=== PATIENT | female | born 1970 | race Caucasian/White ===

== ENCOUNTER 2022-09-16 11:00 | Inpatient (IN) | payer OTHER ==
[2022-09-16 11:38] LABS: Hematocrit 41.5 % (36.0-45.0); Lymphocytes % 26.2 % (15.3-44.8); MPV 9.2 fL (7.6-11.3); RBC Red Blood Cell Count 4.62 M/uL (3.86-4.86)
--- NOTE | 2022-09-16 11:42 | RAD REPORT ---
EXAM DESCRIPTION: RAD - Chest Single View - 09/16/2022 11:38 am CLINICAL HISTORY: syncope vs seizure COMPARISON: No comparisons FINDINGS: Lines: None. Lungs: No evidence of edema or pneumonia. Pleural: No significant pleural effusions or pneumothorax. Cardiac: The heart size is within normal limits. Mediastinum: Within normal limits. Bones: No acute fractures. Other: None IMPRESSION: No acute cardiopulmonary disease.
[2022-09-16 11:46] LABS: Protime INR 0.94
--- NOTE | 2022-09-16 11:58 | RAD REPORT ---
EXAM DESCRIPTION: CT - CTHCSPWOC - 09/16/2022 11:48 am CLINICAL HISTORY: Trauma, head and neck injury. syncope vs seizure, collapse COMPARISON: Neck Angio dated 09/16/2022 TECHNIQUE: Axial 5 mm thick images of the head were obtained. Axial 2 mm thick images of the cervical spine were obtained with sagittal and coronal reconstruction images generated and reviewed. All CT scans are performed using dose optimization technique as appropriate and may include automated exposure control or mA/KV adjustment according to patient size. FINDINGS: CT HEAD WITHOUT CONTRAST: No acute hemorrhage, hydrocephalus or extra-axial collection is identified.No areas of brain edema or midline shift. The paranasal sinuses and mastoids are clear.The calvarium is intact. CT CERVICAL SPINE WITHOUT CONTRAST: No fracture or subluxation.No prevertebral soft tissues swelling is identified. Diffusely enlarged th yroid. Mild multilevel cervical spondylosis. Of note, there is neural foraminal narrowing at multiple levels bilaterally but most notably at C6-7 where the changes are moderate IMPRESSION: No acute intracranial or cervical spine findings.
--- NOTE | 2022-09-16 12:00 | RAD REPORT ---
EXAM DESCRIPTION: CT - Neck Angio - 09/16/2022 11:48 am CLINICAL HISTORY: syncope vs seizure COMPARISON: No comparisons TECHNIQUE: CT angiography of the neck vessels was performed with maximum intensity reformatted image s. 3D maximum intensity pixel (MIP) reconstructions were created CAROTID STENOSIS REFERENCE USING NASCET CRITERIA: Mild - <50% stenosis. Moderate - 50-69% stenosis. Severe - 70-94% stenosis. Near occlusion - 95-99% stenosis. Occluded - 100% stenosis. All CT scans are performed using dose optimization technique as appropriate and may include automated exposure control or mA/KV adjustment according to patient size. FINDINGS: A left aortic arch is identified with normal three vessel configuration of the great vesse ls. No significant flow abnormality is seen of the common carotid bilaterally. Moderate stenosis at the right proximal ICA secondary to calcified plaque. Normal flow is seen within both vertebral arteries. IMPRESSION: Moderate right proximal ICA stenosis. No other stenosis identified within the neck.
[2022-09-16 12:01] LABS: Albumin 3.8 g/dL (3.4-5.0); Bilirubin Direct 0.1 mg/dL (0-0.2); Bilirubin Indirect, Calculated 0.5 mg/dL (0.2-0.8); Bilirubin Total 0.6 mg/dL (0.2-1.0); Magnesium 1.7 mg/dL (1.6-2.4); Potassium 3.9 mEq/L (3.5-5.1); Troponin High Sensitivity 33.1 pg/mL (<58.9)
--- NOTE | 2022-09-16 12:03 | RAD REPORT ---
EXAM DESCRIPTION: CT - Head angio - 09/16/2022 11:48 am CLINICAL HISTORY: syncope vs seizure COMPARISON: No comparisons TECHNIQUE: CT angiography of the head was performed with maximum intensity reformatted images. 3D ma ximum intensity pixel (MIP) reconstructions were created CAROTID STENOSIS REFERENCE USING NASCET CRITERIA: Mild - <50% stenosis. Moderate - 50-69% stenosis. Severe - 70-94% stenosis. Near occlusion - 95-99% stenosis. Occluded - 100% stenosis. All CT scans are performed using dose optimization technique as appropriate and may include automated exposure control or mA/KV adjustment according to patient size. FINDINGS: Anterior circulation: No aneurysm or large vessel occlusion. No hemodynamically significant stenosis. No arteriovenous malf ormation identified. Intracranial calcified plaque. 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 No aneurysm or large vessel occlusion. No hemodynamically significant stenosis. No arteriovenous malformation identified. IMPRESSION: No significant flow abnormality is detected.
[2022-09-16] MEDS ORDERED: NA CHLORIDE 0.9% 1,000 ML ONE ×2 (12:24→17:08)
[2022-09-16] MEDS ORDERED: HYDROCODONE/APAP 5/325 MG TAB ONE (12:38)
--- NOTE | 2022-09-16 13:03 | EDPHYS ---
Physician Documentation [facility] Name: Erika Maddox Age: 52 yrs Sex: Female : 1970 Arrival Date: 09/16/2022 Time: 11:00 Bed 14 Private MD: ED Physician Hakna Mack HPI: 09/16 11:53 This 52 yrs old Female presents to ER via Ambulatory with complaints of Syncope. rn 11:53 The patient has experienced syncope, collapsed, lost consciousness. Onset: The rn symptoms/episode began/occurred just prior to arrival. Duration: This was a single episode. Associated injury: The patient did not suffer any apparent associated injury. Associated signs and symptoms: Pertinent positives: headache, Pertinent negatives: abdominal pain, chest pain, shortness of breath, vomiting. Current symptoms: confusion. The patient has not experienced similar symptoms in the past. Per EMS report, patient with syncopal vs seizure episode, unknown duration, possibly 10 min, generalized shaking, no hx of seizures. No overdose. Reports headache, no focal neuro complaints. Feels confused and can't remember what happened. . Historical: - Allergies: 11:06 No Known Allergies; ss - PMHx: 11:06 Diabetes mellitus; ss 11:38 Hypertensive disorder; Hypothyroidism; CAD; ss 11:39 Myocardial infarction; ss - PSHx: 11:06 Cardiac Stents; ss 11:38 hysterectomy; L carotid; ss - Social history:: Smoking status: Patient denies any tobacco usage or history of. - Family history:: not pertinent. - Hospitalizations: : No recent hospitalization is reported. ROS: 11:53 Constitutional: Negative for fever, chills, and weight loss, Neck: Negative for injury, rn pain, and swelling, Cardiovascular: Negative for chest pain, palpitations, and edema, Respiratory: Negative for shortness of breath, cough, wheezing, and pleuritic chest pain, Abdomen/GI: Negative for abdominal pain, nausea, vomiting, diarrhea, and constipation, Back: Negative for injury and pain, MS/Extremity: Negative for injury and deformity, Skin: Negative for injury, rash, and discoloration, Neuro: + headache and seizure Exam: 11:53 Constitutional: This is a well developed, well nourished patient who is awake, alert, rn and in no acute distress. Seems confused Head/Face: Normocephalic, atraumatic. Eyes: Pupils equal round and reactive to light, extra-ocular motions intact. Cardiovascular: Regular rate and rhythm. No pulse deficits. Respiratory: No increased work of breathing, no retractions or nasal flaring. Abdomen/GI: Soft, non-tender Skin: Warm, dry MS/ Extremity: Pulses equal, no cyanosis. Neuro: Awake and alert, GCS 15, oriented to person, not place or time. Cranial nerves II-XII grossly intact. Motor strength 5/5 in all extremities. Sensory grossly intact. Cerebellar exam normal. Normal gait. Vital Signs: 11:02 BP 160 / 100; Pulse 101; Resp 18; Temp 97.5(TE); Pulse Ox 95% on R/A; Height 5 ft. 3 ss in. ; Pain 0/10; 11:36 BP 171 / 100; Pulse 95; Pulse Ox 100% on R/A; ss 12:23 BP 133 / 83; Pulse 90; Resp 15; Pulse Ox 100% on R/A; Pain 8/10; ss 13:55 BP 134 / 86; Pulse 83; Resp 14; Pulse Ox 100% on R/A; Pain 7/10; ss 11:02 Pain Scale: Adult ss 12:23 Pain Scale: Adult ss 13:55 Pain Scale: Adult ss MDM: 11:02 Patient medically screened. rn 13:01 Differential Diagnosis: cardiac arrhythmia, cerebrovascular accident, emotional rn response, idiopathic syncope, seizure, transient ischemic attack, vasovagal episode. Data reviewed: vital signs, nurses notes, lab test result(s), EKG, radiologic studies, CT scan, and as a result, I will admit patient. Consideration of Admission/Observation Patient was admitted/placed on observation. Escalation of care including admission/observation considered. Management of patient was discussed with the following: Hospitalist: . I considered the following discharge prescriptions or medication management in the emergency department Medications were administered in the Emergency Department. See MAR. Counseling: I had a detailed discussion with the patient and/or guardian regarding: the historical points, exam findings, and any diagnostic results supporting the discharge/admit diagnosis, lab results, radiology results, the need for further work-up and treatment in the hospital. Response to treatment: the patient's symptoms have resolved after treatment, the patient's condition has returned to base line, and as a result, I will admit patient. ED course: Pt now back to baseline, neg ct head/angios, will admit for new onset seizure and cardiac rule out. . 09/16 11:09 Order name: Basic Metabolic Panel; Complete Time: 12:08 rn 09/16 11:09 Order name: CBC with Diff; Complete Time: 12:08 rn 09/16 11:09 Order name: Hepatic Function; Complete Time: 12:08 rn 09/16 11:09 Order name: Magnesium; Complete Time: 12:08 rn 09/16 11:09 Order name: Protime (+inr); Complete Time: 12:08 rn 09/16 11:09 Order name: Ptt, Activated; Complete Time: 12:08 rn 09/16 11:09 Order name: Troponin High Sensitivity; Complete Time: 12:08 rn 09/16 11:09 Order name: Urinalysis w/ reflexes rn 09/16 13:54 Order name: CBC with Automated Diff EDMS 09/16 13:54 Order name: CBC with Automated Diff EDMS 09/16 13:54 Order name: Comprehensive Metabolic Panel EDMS 09/16 13:54 Order name: Comprehensive Metabolic Panel EDMS 09/16 13:54 Order name: Troponin High Sensitivity EDMS 09/16 13:54 Order name: Troponin High Sensitivity EDMS 09/16 13:54 Order name: Troponin High Sensitivity EDMS 09/16 11:09 Order name: CT Head C Spine; Complete Time: 12:08 rn 09/16 11:09 Order name: Chest Single View XRAY; Complete Time: 12:08 rn 09/16 11:09 Order name: Neck Angio CT; Complete Time: 12:08 rn 09/16 11:09 Order name: Head Angio CT; Complete Time: 12:08 rn 09/16 11:09 Order name: EKG; Complete Time: 11:09 rn 09/16 13:54 Order name: Heart Healthy EDMS 09/16 11:09 Order name: Cardiac monitoring; Complete Time: 11:36 rn 09/16 11:09 Order name: EKG - Nurse/Tech; Complete Time: 11:36 rn 09/16 11:09 Order name: IV Saline Lock; Complete Time: 11:36 rn 09/16 11:09 Order name: Labs collected and sent; Complete Time: 11:36 rn 09/16 11:09 Order name: NPO; Complete Time: 11:36 rn 09/16 11:09 Order name: O2 Per Protocol; Complete Time: 11:36 rn 09/16 11:09 Order name: O2 Sat Monitoring; Complete Time: :36 rn 09/16 11:09 Order name: Glucose Level; Complete Time: :36 rn Administered Medications: 12:21 Drug: NS 0.9% IV 1000 ml Route: IV; Rate: 1000 ml; Site: right antecubital; ss 13:30 Follow up: IV Status: Completed infusion; IV Intake: 1000ml ss 12:34 Drug: HYDROcodone-acetaminophen PO 5 mg-325 mg 1 tabs Route: PO; ss 13:55 Follow up: Response: No adverse reaction; Pain is unchanged, physician notified ss 13:30 Drug: Keppra IV 1000 mg Route: IV; Rate: calculated rate; Site: right antecubital; ss 13:45 Follow up: IV Status: Completed infusion ss 13:55 Drug: morphine IVP or IV 4 mg Route: IVP; Infused Over: 4 mins; Site: right antecubital;ss 15:20 Follow up: Response: No adverse reaction ss 14:57 Drug: Famotidine IVP 20 mg Route: IVP; Site: right antecubital; iw 15:20 Follow up: Response: No adverse reaction ss Disposition Summary: 09/16/22 13:03 Hospitalization Ordered Hospitalization Status: Observation rn Provider: Keyla Gan rn Condition: Stable rn Problem: new rn Symptoms: have improved rn Bed/Room Type: Standard rn Location: Telemetry/MedSurg (observation)(09/16/22 16:21) aa5 Room Assignment: 414(09/16/22 16:21) aa Diagnosis - Other seizures - new onset rn Forms: - Medication Reconciliation Form rn - SBAR form rn Signatures: Dispatcher [employer] Donna Forbes RN RN Hakan Mack MD MD rn Calderon, Audri, RN RN aa Heike Mello RN RN ss Corrections: (The following items were deleted from the chart) 11:58 11:53 Constitutional: Negative for fever, chills, and weight loss, Neck: Negative for rn injury, pain, and swelling, Cardiovascular: Negative for chest pain, palpitations, and edema, Respiratory: Negative for shortness of breath, cough, wheezing, and pleuritic chest pain, Abdomen/GI: Negative for abdominal pain, nausea, vomiting, diarrhea, and constipation, Back: Negative for injury and pain, MS/Extremity: Negative for injury and deformity, Skin: Negative for injury, rash, and discoloration, Neuro: Negative for weakness, numbness, tingling, and seizure, rn 15: 13:03 Telemetry/MedSurg (observation) rn 15: 13:03 rn 16: 15:17 [facility] ER [facility] aa5 16: 15:17 [facility] aa[facility]
--- NOTE | 2022-09-16 13:03 | ER ---
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 EMS reports initial VS were ss 230/130 HR 112, BGL 401. Coronavirus screen: Client denies travel out of the [place] in the last 14 days. Ebola Screen: Patient denies exposure to infectious person. Patient denies travel to an Ebola-affected area in the 21 days before illness onset. Initial Sepsis Screen: Does the patient meet any 2 criteria? No. Patient's initial sepsis screen is negative. Does the patient have a suspected source of infection? No. Patient's initial sepsis screen is negative. Risk Assessment: Do you want to hurt yourself or someone else? Patient reports no desire to harm self or others. Onset of symptoms was September 16, 2022. 11:02 Method Of Arrival: Ambulatory ss 11:02 Acuity: JIN 2 ss Historical: - Allergies: 11:06 No Known Allergies; ss - PMHx: 11:06 Diabetes mellitus; ss 11:38 Hypertensive disorder; Hypothyroidism; CAD; ss 11:39 Myocardial infarction; ss - PSHx: 11:06 Cardiac Stents; ss 11:38 hysterectomy; L carotid; ss - Social history:: Smoking status: Patient denies any tobacco usage or history of. - Family history:: not pertinent. - Hospitalizations: : No recent hospitalization is reported. Screenin:37 [facility] ED Fall Risk Assessment (Adult) History of falling in the last 3 months, ss including since admission Yes- physiologic fall (2 pts). Abuse screen: Denies threats or abuse. Denies injuries from another. Nutritional screening: No deficits noted. Tuberculosis screening: Never had TB. Assessment: 11:37 Reassessment: Pt to CT now VIA stretcher. ss 13:55 Reassessment: at bedside. Pt states that headache is unchanged. 10/16. Dr. Mack ss notified and Morphine administered as ordered. Neuro: Level of Consciousness is awake, alert. Respiratory: Airway is patent Respiratory effort is even, unlabored. Vital Signs: 11:02 BP 160 / 100; Pulse 101; Resp 18; Temp 97.5(TE); Pulse Ox 95% on R/A; Height 5 ft. 3 ss in. ; Pain 0/10; 11:36 BP 171 / 100; Pulse 95; Pulse Ox 100% on R/A; ss 12:23 BP 133 / 83; Pulse 90; Resp 15; Pulse Ox 100% on R/A; Pain 8/10; ss 13:55 BP 134 / 86; Pulse 83; Resp 14; Pulse Ox 100% on R/A; Pain 7/10; ss 11:02 Pain Scale: Adult ss 12:23 Pain Scale: Adult ss 13:55 Pain Scale: Adult ss ED Course: 11:02 Patient arrived in ED. ss 11:02 Hakan Mack MD is Attending Physician. rn 11:06 Triage completed. ss 11:06 Arm band placed on right wrist. ss 11:25 Maintain EMS IV. Dressing intact. Good blood return noted. Site clean \T\ dry. Gauge \T\ ss site: 22 gauge in L wrist. 11:36 Heike Fisher RN is Primary Nurse. ss 11:37 Patient has correct armband on for positive identification. ss 11:37 Inserted saline lock: 20 gauge in right antecubital area, using aseptic technique. ss Blood collected. 11:39 Chest Single View XRAY In Process Unspecified. EDMS 11:50 CT Head C Spine In Process Unspecified. EDMS 11:[address] In Process Unspecified. EDMS 11:[address] In Process Unspecified. EDMS 13:02 Keyla Gan MD is Hospitalizing Provider. rn 15:18 No provider procedures requiring assistance completed. Patient admitted, IV remains in ss place. Administered Medications: 12:21 Drug: NS 0.9% IV 1000 ml Route: IV; Rate: 1000 ml; Site: right antecubital; ss 13:30 Follow up: IV Status: Completed infusion; IV Intake: 1000ml ss 12:34 Drug: HYDROcodone-acetaminophen PO 5 mg-325 mg 1 tabs Route: PO; ss 13:55 Follow up: Response: No adverse reaction; Pain is unchanged, physician notified ss 13:30 Drug: Keppra IV 1000 mg Route: IV; Rate: calculated rate; Site: right antecubital; ss 13:45 Follow up: IV Status: Completed infusion ss 13:55 Drug: morphine IVP or IV 4 mg Route: IVP; Infused Over: 4 mins; Site: right antecubital;ss 15:20 Follow up: Response: No adverse reaction ss 14:57 Drug: Famotidine IVP 20 mg Route: IVP; Site: right antecubital; iw 15:20 Follow up: Response: No adverse reaction ss Medication: 11:38 VIS not applicable for this client. ss Intake: 13:30 IV: 1000ml; Total: 1000ml. ss Outcome: 13:03 Decision to Hospitalize by Provider. rn 15:18 Admitted to ER Hold. Please see [facility] for further documentation. ss 15:18 Condition: good 15:18 Instructed on the need for admit. 20:19 Admitted to Med/surg room 414, Report called to antwon schaeffer 20:36 Patient left the ED. Signatures: Dispatcher [employer] EDMichelle Catalan RN RN kl Williams, Irene, RN RN iw Nieto, Roman, MD MD rn Blanchard, Shelby, RN RN
[2022-09-16] MEDS ORDERED: levETIRAcetam 1,000 MG in NA CHLORIDE 0.9% 100 ML IV ONE (13:15)
[2022-09-16 13:44] LABS: Specific Gravity > 1.030 (1.005-1.030); Urine Bacteria <20 /HPF (<20); Urine Bilirubin NEGATIVE (Negative); Urine Blood Negative (Negative); Urine Clarity Clear (Clear); Urine Color Colorless (Yellow); Urine Glucose 4+ (Over) (Negative); Urine Mucus Slight /HPF (None Seen); Urine Protein 1+ (Negative); Urine RBC <5 /HPF (None Seen); Urine Urobilinogen Normal (Normal)
[2022-09-16] MEDS ORDERED: ONDANSETRON 4 MG/2 ML VIAL IV PRN (13:48)
[2022-09-16] MEDS ORDERED: MORPHINE 4 MG/ML SYR ONE (13:55)
[2022-09-16] MEDS: NA CHLORIDE 0.9% 1,000 ML IV SCH (14:00)
[2022-09-16] MEDS ORDERED: clonazePAM 0.5 MG TAB PO SCH (14:00)
[2022-09-16] MEDS ORDERED: FAMOTIDINE 20 MG/2 ML VIAL IV ONE (14:56)
[2022-09-16] MEDS ORDERED: MORPHINE 2 MG/ML SYR ONE (17:40)
--- NOTE | 2022-09-16 17:48 | P.HP ---
Certification for Inpatient Patient admitted to: Observation With expected LOS: <2 Midnights Patient will require the following post-hospital care: None Practitioner: I am a practitioner with admitting privileges, knowledge of patient current condition, hospital course, and medical plan of care. Services: Services provided to patient in accordance with Admission requirements found in Title 42 Section 412.3 of the Code of Federal Regulations Patient History Date of Service: 09/16/22 Reason for admission: Cardiac syncope versus seizure History of Present Illness: Patient is a 52-year-old female who was not feeling well today. She states she was having a hard time concentrating all day. 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 While he was talking to her she seemed to tense and throw her arms up in the air and she fell backwards. She appeared to have what looked like a seizure and she bit her tongue. She was brought to the emergency room and she was altered for the first couple hours in the emergency room. She has started coming around and she answers all my questions fairly appropriately. She still having a hard time thinking. She was loaded with Keppra. We really do not have the means to do an EEG in the hospital but her CT imaging studies are negative. I will go ahead and put her on antiepileptics as well as anxiolytics. We will put her on antiplatelet and statin therapy. She does not have any neurologic deficits at this time. She will be admitted to the hospital for further evaluation. Allergies No Known Allergies Allergy (Unverified 09/16/22 13:07) - Past Medical/Surgical History -: Coronary artery disease status post stent placement -: Cardiac catheterization status post stents - Family History Father Family History: Reviewed- Non-Contributory - Social History Smoking Status: Current some day smoker Alcohol use: No CD- Drugs: No Review of Systems 10-point ROS is otherwise unremarkable Physical Examination - Vital Signs Temperature: 98 F Blood Pressure: 130/80 Pulse: 80 Respirations: 16 Pulse Ox (%): 95 - Physical Exam General: Alert, In no apparent distress, Oriented x3 HEENT: Atraumatic, PERRLA, Mucous membr. moist/pink, EOMI, Sclerae nonicteric Neck: Supple, 2+ carotid pulse no bruit, No LAD, Without JVD or thyroid abnormality Respiratory: Clear to auscultation bilaterally, Normal air movement Cardiovascular: Regular rate/rhythm, Normal S1 S2, No murmurs Gastrointestinal: Normal bowel sounds, Soft and benign, Non-distended, No te nderness Musculoskeletal: No clubbing, No swelling, No tenderness Integumentary: No rashes Neurological: Normal gait, Normal speech, Normal strength at 5/5 x4 extr, Normal tone, Sensation intact, Cranial nerves 3-12 intact, Normal affect Lymphatics: No axilla or inguinal lymphadenopathy - Studies Laboratory Data (last 24 hrs) 09/16/22 11:31: PT 10.3, INR 0.94, APTT 33.1 09/16/22 11:31: WBC 7.80, Hgb 14.1, Hct 41.5, Plt Count 273 09/16/22 11:31: Sodium 134 L, Potassium 3.9, BUN 16, Creatinine 1.03 H, Glucose 358 H, Magnesium 1.7, Total Bilirubin 0.6, AST 18, ALT 36, Alkaline Phosphatase 91 Assessment & Plan - Problems (Diagnosis) (1) Syncope and collapse Current Visit: Yes Status: Acute (2) Seizure disorder Current Visit: Yes Status: Acute (3) History of coronary artery disease Current Visit: Yes Status: Acute (4) Status post coronary artery stent placement Current Visit: Yes Status: Acute (5) Tobacco abuse Current Visit: Yes Status: Acute - Plan Plan: 1. Continue with antiepileptic therapy 2. Antiplatelet and statin therapy 3. Repeat CT of the head in the morning 4. Outpatient EEG and neurology follow-up 5. Lipid profile 6. DVT prophylaxis 7. Out of bed and ambulate and if any difficulty physical therapy consultation 8. Bedside swallow eval and if any difficulty speech therapy consultation 9. GI DVT prophylaxis Patient will be admitted for observation. If her CT of the brain is negative in the morning we should be able to discharge her home. However, if she does have persistent seizures or there is any new changes or findings on her CT scan we will need to change her for an inpatient admission to work her up a little more extensively. At this time, patient will be admitted for observation and we will see how she does during her hospital stay. Discharge Plan: Home Plan to discharge in: 24 Hours - Advance Directives Does patient have a Living Will: No Does patient have a Durable POA for Healthcare: No - Code Status/Comfort Care Code Status Assessed: Yes Code Status: Full Code Critical Care: No Time Spent Managing PTS Care (In Minutes): 50
[2022-09-16 17:50] VITALS: BMI 31.8
[2022-09-16] MEDS: MORPHINE 2 MG/ML SYR IV PRN ×2 (17:51→22:10)
[2022-09-16] MEDS ORDERED: ONDANSETRON 4 MG/2 ML VIAL ONE (18:12)
[2022-09-16] MEDS: TOPIRAMATE 25 MG TAB PO SCH ×2 (18:35→21:49)
[2022-09-16] MEDS ORDERED: TOPIRAMATE 25 MG TAB ONE (18:36)
[2022-09-16] MEDS ORDERED: GLUCAGON 1 MG/VIAL IM PRN (18:56)
[2022-09-16] MEDS ORDERED: D50W 25 GM/50 ML SYRINGE IV PRN (18:56)
[2022-09-16] MEDS ORDERED: D10W 125 ML IV PRN (19:04)
[2022-09-16] MEDS: levETIRAcetam 500 MG in NA CHLORIDE 0.9% 100 ML IV SCH (21:48)
[2022-09-16] MEDS: ATORVASTATIN 40 MG TAB PO SCH (21:49)
[2022-09-17] MEDS: INSULIN -REGULAR HUMAN 50 UNIT/0.5 ML ML SQ SCH ×5 (00:20→20:04)
[2022-09-17 04:09] LABS: Absolute Lymphocytes (CBC) 2.1 K/uL (0.7-4.9); Hematocrit 39.4 % (36.0-45.0); Lymphocytes % 23.8 % (15.3-44.8); MCV 90.7 fL (80-100); MPV 9.3 fL (7.6-11.3); RBC Red Blood Cell Count 4.34 M/uL (3.86-4.86)
[2022-09-17 04:24] LABS: Albumin 3.1 g/dL (3.4-5.0); Bilirubin Total 0.6 mg/dL (0.2-1.0); Potassium 3.8 mEq/L (3.5-5.1); Protein, Total 6.8 g/dL (6.4-8.2)
[2022-09-17] MEDS: TOPIRAMATE 25 MG TAB PO SCH ×2 (09:12→20:10)
[2022-09-17] MEDS: ASPIRIN EC 81 MG TAB PO SCH (09:12)
[2022-09-17] MEDS: levETIRAcetam 500 MG in NA CHLORIDE 0.9% 100 ML IV SCH ×2 (09:12→20:06)
[2022-09-17] MEDS: ACETAMINOPHEN 500 MG TAB PO PRN ×2 (09:23→16:06)
[2022-09-17] MEDS ORDERED: SODIUM CHLORIDE 0.9% 10ML INJ IV PRN (10:12)
[2022-09-17] MEDS ORDERED: MAGNES/ALUMIN/SIMET 30ML UCUP PO ONE (10:30)
[2022-09-17] MEDS ORDERED: PANTOPRAZOLE 40 MG INJ IVP ONE (10:30)
[2022-09-17] MEDS: NA CHLORIDE 0.9% 1,000 ML IV SCH ×3 (16:06→20:11)
[2022-09-17] MEDS: ATORVASTATIN 40 MG TAB PO SCH (20:05)
[2022-09-17] MEDS: MORPHINE 2 MG/ML SYR IV PRN (20:10)
[2022-09-17 22:26] VITALS: O2SAT 96
[2022-09-18] MEDS: PANTOPRAZOLE 40MG TABLET PO SCH (06:26)
[2022-09-18] MEDS: NA CHLORIDE 0.9% 1,000 ML IV SCH (06:26)
--- NOTE | 2022-09-18 08:45 | RAD REPORT ---
EXAM DESCRIPTION: MRI - Brain Wo Cont - 09/18/2022 7:36 am CLINICAL HISTORY: CVA Headache, drowsiness, CVA symptomology COMPARISON: Head angio dated 09/16/2022 TECHNIQUE: Multi-sequence, multiplanar MR imaging of the brain was performed without contrast. FINDINGS: No intracranial hemorrhage, hydrocephalus or extra-axial fluid collections.Mild periventri cular and deep white matter chronic microvascular ischemic changes. No edema or shift of midline stru ctures. No findings to suspect brain mass. DWI is negative for acute CVA. Midline structures are normally formed. Mastoid air cells and paranasal sinuses are clear. IMPRESSION: Negative for acute CVA or other acute intracranial process.
[2022-09-18] MEDS: ASPIRIN EC 81 MG TAB PO SCH (08:48)
[2022-09-18] MEDS: levETIRAcetam 500 MG in NA CHLORIDE 0.9% 100 ML IV SCH ×2 (08:49→19:46)
[2022-09-18] MEDS: INSULIN -REGULAR HUMAN 50 UNIT/0.5 ML ML SQ SCH ×4 (08:49→19:44)
[2022-09-18] MEDS: TOPIRAMATE 25 MG TAB PO SCH (08:57)
--- NOTE | 2022-09-18 10:08 | P.PN ---
Subjective Date of Service: 09/17/22 Patient states she is having near syncopal episodes. EEG and MRI pending. We will also get an echocardiogram. Patient is concerned she will continue to have these episodes. We will continue to have work-up completed. She overall is feeling better. But still having near syncopal episodes. We will complete the work-up. As long as patient's work-up is unremarkable anticipate discharge soon. Patient with significant degree of LDL elevation. We will need to get MRI to rule out acute CVA. Review of Systems 10-point ROS is otherwise unremarkable Physical Examination - Vital Signs Temperature: 96.7 F Blood Pressure: 122/75 Pulse: 60 Respirations: 18 Pulse Ox (%): 94 - Physical Exam General: Alert, In no apparent distress HEENT: Atraumatic, PERRLA, EOMI Neck: Supple, JVD not distended Respiratory: Clear to auscultation bilaterally, Normal air movement Cardiovascular: Regular rate/rhythm, Normal S1 S2 Gastrointestinal: Normal bowel sounds, No tenderness Musculoskeletal: No tenderness Integumentary: No rashes Neurological: Normal speech, Normal tone, Normal affect Lymphatics: No axilla or inguinal lymphadenopathy - Studies Medications List Reviewed: Yes Assessment & Plan - Problems (Diagnosis) (1) Syncope and collapse Current Visit: Yes Status: Acute (2) Seizure disorder Current Visit: Yes Status: Acute (3) History of coronary artery disease Current Visit: Yes Status: Acute (4) Status post coronary artery stent placement Current Visit: Yes Status: Acute (5) Tobacco abuse Current Visit: Yes Status: Acute - Plan Plan: Continue with plan of care as mentioned below: 1. Continue with antiepileptic therapy 2. Antiplatelet and statin therapy 3. MRI pending 4. Outpatient EEG and neurology follow-up 5. Lipid profile reveals significant elevation of LDL. Definitely important to make sure patient does not have a CVA with her significant degree of LDL elevation. 6. DVT prophylaxis 7. GI DVT prophylaxis - Advance Directives Does patient have a Living Will: No Does patient have a Durable POA for Healthcare: No - Code Status/Comfort Care Code Status: Full Code
--- NOTE | 2022-09-18 10:16 | P.DS ---
Discharge Date: 09/18/22 Disposition: ROUTINE DISCHARGE Reason for Admission: Cardiac syncope versus seizure - Problems (1) Syncope and collapse Current Visit: Yes Status: Acute (2) Seizure disorder Current Visit: Yes Status: Acute (3) History of coronary artery disease Current Visit: Yes Status: Acute (4) Status post coronary artery stent placement Current Visit: Yes Status: Acute (5) Tobacco abuse Current Visit: Yes Status: Acute Brief History of Present Illness: Patient is a 52-year-old female who was not feeling well today. She states she was having a hard time concentrating all day. 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 While he was talking to her she seemed to tense and throw her arms up in the air and she fell backwards. She appeared to have what looked like a seizure and she bit her tongue. She was brought to the emergency room and she was altered for the first couple hours in the emergency room. She has started coming around and she answers all my questions fairly appropriately. She still having a hard time thinking. She was loaded with Keppra. We really do not have the means to do an EEG in the hospital but her CT imaging studies are negative. I will go ahead and put her on antiepileptics as well as anxiolytics. We will put her on antiplatelet and statin therapy. She does not have any neurologic deficits at this time. She will be admitted to the hospital for further evaluation. Hospital Course: Patient is clinically doing well. MRI was unremarkable. EEG and echocardiogram are pending. Patient's LDL was significantly elevated and she will need statin therapy along with antiplatelet therapy. Continue with antiepileptics. Patient overall is doing much better. Patient denies any new complaints. Patient should be stable for discharge on antiplatelet therapy and antiepileptics and statin therapy. Vital Signs/Physical Exam: Temp Pulse Resp BP Pulse Ox 96.7 F L 60 18 122/75 94 09/18/22 10:08 09/18/22 10:08 09/18/22 10:08 09/18/22 10:08 09/18/22 10:08 General: Alert, In no apparent distress, Oriented x3 Laboratory Data at Discharge: WBC 8.60 thou/uL (4.3-10.9) 09/17/22 03:55 Hgb 13.2 g/dL (12.0-15.0) 09/17/22 03:55 Hct 39.4 % (36.0-45.0) 09/17/22 03:55 Plt Count 259 thou/uL (152-406) 09/17/22 03:55 PT 10.3 SECONDS (9.5-12.5) 09/16/22 11:31 INR 0.94 09/16/22 11:31 APTT 33.1 SECONDS (24.3-36.9) 09/16/22 11:31 Sodium 135 mEq/L (136-145) L 09/17/22 03:55 Potassium 3.8 mEq/L (3.5-5.1) 09/17/22 03:55 BUN 15 mg/dL (7-18) 09/17/22 03:55 Creatinine 0.85 mg/dL (0.55-1.02) 09/17/22 03:55 Glucose 394 mg/dL (74-106) H 09/17/22 03:55 Magnesium 1.7 mg/dL (1.6-2.4) 09/16/22 11:31 Total Bilirubin 0.6 mg/dL (0.2-1.0) 09/17/22 03:55 AST 26 U/L (15-37) 09/17/22 03:55 ALT 45 U/L (13-56) 09/17/22 03:55 Alkaline Phosphatase 94 U/L (45-117) 09/17/22 03:55 Triglycerides 249 mg/dL (<150) H 09/17/22 03:55 Cholesterol 309 mg/dL (<200) H 09/17/22 03:55 HDL Cholesterol 38 mg/dL (40-60) L 09/17/22 03:55 Cholesterol/HDL Ratio 8.13 09/17/22 03:55 Home Medications: Levothyroxine Sodium [Synthroid] 150 mcg PO DAILY 09/16/22 Metformin HCl 1,000 mg PO BID 09/16/22 Metoprolol Tartrate [Lopressor*] 50 mg PO BID 09/16/22 glipiZIDE [Glucotrol*] 5 mg PO BID 09/16/22 Aspirin [Aspirin EC 81 MG] 162 mg PO DAILY #60 09/18/22 Atorvastatin Calcium [Lipitor] 40 mg PO BEDTIME #30 tab 09/18/22 Clopidogrel Bisulfate [Plavix] 75 mg PO DAILY #30 tab 09/18/22 Topiramate [Topamax*] 25 mg PO BID #60 tab 09/18/22 levETIRAcetam [Keppra Tab] 500 mg PO BID #60 tab 09/18/22 New Medications: Aspirin [Aspirin EC 81 MG] 162 mg PO DAILY #60 levETIRAcetam [Keppra Tab] 500 mg PO BID #60 tab Atorvastatin Calcium [Lipitor] 40 mg PO BEDTIME #30 tab Clopidogrel Bisulfate [Plavix] 75 mg PO DAILY #30 tab Topiramate [Topamax*] 25 mg PO BID #60 tab Physician Discharge Instructions: -DC IV and DC home -Follow-up with PCP in 1 to 2 weeks -Follow-up with Neurology & Cardiology in 1 to 2 weeks -Please call Dr. Gan at [phone] if any questions regarding hospital stay -Please call nursing station at [phone] if any nursing or medication questions -Return to the emergency room if symptoms worsen Diet: AHA Activity: Fall precautions Followup: NONE,NONE [Primary Care Provider] - Time spent managing pt's care (in minutes): 35
--- NOTE | 2022-09-18 12:08 | EKG ---
Test Date: 2022-09-16 Test Time: 11:21:08 Backend Java Developer: JATIN MEASUREMENT RESULTS: Intervals: Rate: 95 NE: 188 QRSD: 86 QT: 362 QTc: 454 [place]: P: 43 NE: 188 QRS: -23 T: 88 INTERPRETIVE STATEMENTS: Normal sinus rhythm Possible Left atrial enlargement Inferior infarct, age undetermined Anterolateral infarct, age undetermined Abnormal ECG No previous ECG available for comparison Electronically Signed On 09-18-22 12:01:11 CDT by Davi Kelsey
[2022-09-18] MEDS ORDERED: ALPRAZOLAM 0.25 MG TABLET PO ONE (13:01)
--- NOTE | 2022-09-18 14:04 | ECHO ---
HEIGHT: 5 ft 3 in WEIGHT: 180 lb 0 oz DATE OF STUDY: 09/18/[address]: Keyla Gan MD 2-DIMENSIONAL: YES M.MODE: YES DOPPLER: YES COLOR FLOW: YES TDS: PORTABLE: YES DEFINITY: BUBBLE STUDY: DIAGNOSIS: CONGESTIVE HEART FAILURE CARDIAC HISTORY: CATHERIZATION: YES SURGERY: NO PROSTHETIC VALVE: NO PACEMAKER: NO MEASUREMENTS (cm) DIASTOLIC (NORMALS) SYSTOLIC (NORMALS) IVSd 0.9 (0.6-1.2) LA Diam 2.9 (1.9-4.0) LVEF 74% LVIDd 4.1 (3.5-5.7) LVIDs 2.4 (2.0-3.5) %FS 42% LVPWd 1.0 (0.6-1.2) Ao Diam 2.7 (2.0-3.7) 2 DIMENSIONAL ASSESSMENT: RIGHT ATRIUM: NORMAL LEFT ATRIUM: NORMAL RIGHT VENTRICLE: NORMAL LEFT VENTRICLE: NORMAL TRICUSPID VALVE: NORMAL MITRAL VALVE: NORMAL PULMONIC VALVE: NORMAL AORTIC VALVE: NORMAL PERICARDIAL EFFUSION: NONE AORTIC ROOT: NORMAL LEFT VENTRICULAR WALL MOTION: NORMAL EJECTION FRACTION DOPPLER/COLOR FLOW: NORMAL COMMENTS: 1. DECREASED LEFT VENTRICULAR COMPLIANCE. 2. NORMAL EJECTION FRACTION 3. NO EFFUSION TECHNOLOGIST: ANAM ECHAVARRIA
[2022-09-18 14:10] LABS: Thyroid Stimulating Hormone 35.5 uIU/mL (0.358-3.740)
[2022-09-18] MEDS ORDERED: SUMATRIPTAN SUCCI 50 MG TAB PO ONE (14:35)
[2022-09-18] MEDS ORDERED: glipiZIDE 5 MG TAB PO SCH (16:30)
[2022-09-18] MEDS: METFORMIN HCL 500 MG TAB PO SCH (17:08)
--- NOTE | 2022-09-18 18:39 | RAD REPORT ---
EXAM DESCRIPTION: MRI - C Spine Wo Cont - 09/18/2022 5:01 pm CLINICAL HISTORY: Numbness COMPARISON: CT September 16, 2022 TECHNIQUE: Magnetic resonance imaging of the cervical spine was obtained. Sagittal and axial images completed. FINDINGS: No significant abnormality craniocervical junction Mild anterior subluxation C3 on C4, C4 on C5 and C5-C6. Mild posterior subluxation C6 on C7. C2-3 unremarkable Mild spondylosis C3-4 Osteophytes C4-5 results mild to moderate narrowing left neural foramina Disc bulge, osteophytes and right facet hypertrophy C5-6 result in mild to moderate narrowing right n eural foramina. Disc bulge and osteophytes at C6-7. Thecal sac measures 9 millimeters. Moderate narrowing of the righ t and mild to moderate narrowing of the left neural foramina C7-T1 unremarkable The spinal cord is normal caliber and signal. No significant abnormal signal within the bones is noted. IMPRESSION: Spondylosis most marked at C6-7 resulting in mild central and moderate right foraminal s tenosis
[2022-09-18] MEDS: METOPROLOL TAR 50 MG TAB PO SCH (19:43)
[2022-09-18] MEDS: ATORVASTATIN 40 MG TAB PO SCH (19:44)
[2022-09-19] MEDS ORDERED: INSULIN 70/30 100 UNITS/ML SQ SCH (06:00)
[2022-09-19] MEDS ORDERED: LEVOTHYROXINE SOD 0.075 MG TAB PO SCH (06:30)
[2022-09-19] MEDS: PANTOPRAZOLE 40MG TABLET PO SCH (06:36)
[2022-09-19] MEDS ORDERED: glipiZIDE 5 MG TAB PO SCH (07:30)
[2022-09-19] MEDS: levETIRAcetam 500 MG in NA CHLORIDE 0.9% 100 ML IV SCH (08:43)
[2022-09-19] MEDS: METOPROLOL TAR 50 MG TAB PO SCH (08:45)
[2022-09-19] MEDS: METFORMIN HCL 500 MG TAB PO SCH (08:45)
[2022-09-19] MEDS: ASPIRIN EC 81 MG TAB PO SCH (08:45)
[2022-09-19] MEDS: INSULIN -REGULAR HUMAN 50 UNIT/0.5 ML ML SQ SCH ×2 (08:46→13:08)
[2022-09-19] MEDS: ACETAMINOPHEN 500 MG TAB PO PRN (10:06)
[2022-09-19] MEDS ORDERED: ALPRAZOLAM 0.25 MG TABLET PO ONE (10:30)
[2022-09-19] MEDS ORDERED: METOPROLOL TAR 25 MG TAB PO ONE (10:30)
[2022-09-19] MEDS ORDERED: ENOXAPARIN 40 MG/0.4 ML SQ SCH (14:00)
--- NOTE | 2022-09-19 14:41 | RAD REPORT ---
EXAM DESCRIPTION: CT - Chest For Pe Angio - 09/19/2022 1:23 pm CLINICAL HISTORY: Chest pain COMPARISON: Chest Single View dated 09/16/2022 TECHNIQUE: Thin axial CT images of the chest were obtained following administration of 100 mL Isovue 370 IV contrast. Multiplanar reconstructions, and maximum intensity projection reconstructions were generated and reviewed. Exam utilizes a protocol for optimal evaluation of pulmonary arterial tree. All CT scans are performed using dose optimization technique as appropriate and may include automated exposure control or mA/KV adjustment according to patient size. FINDINGS: Pulmonary arteries are normal. No emboli or other suspicious finding. No acute or signific ant aorta findings. Decreased inspiratory effort limits evaluation. No mass or infiltrate in the lung parenchyma. Bilater al platelike atelectatic changes. No pleural thickening or pleural effusion. No pneumothorax. No abnormal mediastinal or hilar masses or lymphadenopathy seen. No chest wall mass or abnormal axill iary lymphadenopathy. Heart is normal in size. Dense atherosclerotic calcific plaque formation along the proximal coronary arteries. IMPRESSION: No evidence of acute central pulmonary emboli. No other acute findings. Incidental findings including dense atherosclerotic changes along the proxim al coronary arteries.
[2022-09-19 16:51] VITALS: BP 108/68; TEMP 97.3
--- NOTE | 2022-09-20 08:19 | EKG ---
Test Date: 2022-09-19 Test Time: 10:36:11 Care Transitions Manager: MACRINA MEASUREMENT RESULTS: Intervals: Rate: 63 [place]: 190 QRSD: 86 QT: 386 QTc: 395 [place]: P: 51 [place]: 190 QRS: -15 T: 86 INTERPRETIVE STATEMENTS: Normal sinus rhythm Inferior infarct, age undetermined Anteroseptal infarct, age undetermined Abnormal ECG Compared to ECG 09/18/2022 13:45:28 Sinus bradycardia no longer present Myocardial infarct finding still present Electronically Signed On 09-20-22 08:17:31 CDT by Davi Kelsey
--- NOTE | 2022-09-20 08:23 | EKG ---
Test Date: 2022-09-18 Test Time: 13:45:28 Tool And Die Inspector: MACRINA MEASUREMENT RESULTS: Intervals: Rate: 56 MA: 172 QRSD: 86 QT: 424 QTc: 409 [place]: P: 53 MA: 172 QRS: 25 T: 167 INTERPRETIVE STATEMENTS: Sinus bradycardia Anterior infarct, age undetermined Abnormal ECG Compared to ECG 09/16/2022 11:21:08 Sinus rhythm no longer present Myocardial infarct finding still present Electronically Signed On 09-20-22 08:18:21 CDT by Davi Kelsey
== END 2022-09-19 18:06 | disposition home or self-care (01) | DRG 101 ==
LOC: ER 11:00 → ERHOLD 13:49 → 4TH 20:21 → OBSVTOIN 09-18 14:30
PROVIDERS: ADMIT Hospitalist; ATTEND Hospitalist
DX: G40.909 Epilepsy, unspecified, not intractable, without status epilepticus (principal); R55 Syncope and collapse; I25.10 Atherosclerotic heart disease of native coronary artery without angina pectoris; I10 Essential (primary) hypertension; E03.9 Hypothyroidism, unspecified; F17.210 Nicotine dependence, cigarettes, uncomplicated; Z95.5 Presence of coronary angioplasty implant and graft; I25.2 Old myocardial infarction
CPT/HCPCS: 36415; 70450; 70496; 70498; 70551; 71045; 71275; 72125; 72141; 80048; 80053; 80061; 80076; 81001; 82947; 83735; 84439; 84443; 84484; 85025; 85379; 85610; 85730; 93005; 93306; 96361; 96374; 96375; 99285; C9113; G0378; J1650; J1815; J1953; J2270; J2405; J7030; Q9967